=== PATIENT | female | born 1990 | race African-American/Black ===

== ENCOUNTER 2016-08-17 06:09 | Emergency (ER) | payer OTHER ==
[2016-08-17] MEDS ORDERED: VALIUM5 M1 PO (08:36)
[2016-08-17] MEDS ORDERED: PERCOCET 5-3251 EACH PO (08:36)
== END 2016-08-17 09:13 ==
LOC: EDMED 06:09
DX: M54.42 Lumbago with sciatica, left side (principal); R51 Headache; M25.511 Pain in right shoulder; I10 Essential (primary) hypertension
CPT/HCPCS: J2270; J2550